=== PATIENT | female | born 1965 | race Asian ===

== ENCOUNTER 2016-11-23 01:51 | Emergency (ER) | payer BC ==
[2016-11-23] VITALS (11 sets, daily range): BP systolic 92–116; BP diastolic 62–69
[~2016-11-23] VITALS: Ht 167.6 cm; Wt 65.8 kg
[2016-11-23] MEDS ORDERED: Haloperidol 5mg/ml Inj IM ONE (02:15)
--- NOTE | 2016-11-23 02:21 | Emergency Room Report ---
History of Present Illness General Chief Complaint: Behavioral Complaint Source: Patient, Family Member, EMS Present Illness HPI This is a 51-year-old Turkmen with a history of alcohol abuse and depression. She was brought in by EMS with police escort on a 5150. Her called 911 because she was suicidal. He said that she was binge drinking and took Valium in attempt to overdose. She was hit her head against the wall. Per police, she expressed suicidal thoughts and try to bite her tongue. Her has been said that she's been depressed lately because her parents recently . She been drinking more. She had a history of expressing suicidal thoughts medicationbyherpsychiatrist. She was doing well on it but stopped. Allergies: Coded Allergies: No Known Allergies (Unverified , 11/23/16) Patient History Past Medical History: see triage record, old chart reviewed Past Surgical History: other Family History: none Social History: ETOH Last Menstrual Period: ukn Now: No - ukn Immunizations: other Reviewed Nursing Documentation: PMH: Agreed, PSxH: Agreed Nursing Documentation-PMH Past Medical History: No History, Except For Review of Systems ENT: Denies: sore throat Cardiovascular: Denies: chest pain, palpitations Gastrointestinal/Abdominal: Denies: diarrhea, nausea, vomiting Musculoskeletal: Denies: back problems Skin: Denies: rash Neurological: Denies: HOWE, seizures All Other Systems: negative except mentioned in HPI Physical Exam Vital Signs Date Time Temp Pulse Resp B/P Pulse Ox O2 Delivery O2 Flow Rate FiO2 11/23/16 01:43 98.2 92 16 104/68 98 Room Air vitals normal Sp02 EP Interpretation: reviewed, normal General Appearance: alert/responsive, no apparent distress, non-toxic Head: normocephalic, atraumatic Eyes: PERRL, EOMI ENT: oropharynx normal Neck: supple/symm/no masses Respiratory: effort normal, no rhonchi, no wheezing Cardiovascular: no murmur, gallop, rub Gastrointestinal: non-tender, no mass, non-distended, no rebound/guarding, normal bowel sounds Neurologic: oriented x3, sensory intact, motor strength/tone normal Psychiatric: other - Combative, not cooperative. Yelling. Suicide Risk Assessment: Suicidal Ideation: Yes Had intent to initiate attempt: Yes Pt's plan for suicide attempt: Yes Has means to complete attempt: Yes Skin: no rash, normal palpation Medical Decision Making Diagnostic Impression: Primary Impression: Suicidal ideation Additional Impression: Overdose Qualified Codes: T50.902A - Poisoning by unspecified drugs, medicaments and biological substances, intentional self-harm, initial encounter ER Course Patient presents with overdose and suicidal thoughts. Patient was very combative and aggressive. She had to be placed in physical restraint. Once she is calmer, will remove restraint. Patient is given Haldol for sedation. patient is medically clear for psychiatric evaluation. Laboratory Tests Test 11/23/16 02:45 White Blood Count 12.6 K/UL (4.8-10.8) H Red Blood Count 4.33 M/UL (4.20-5.40) Hemoglobin 14.0 G/DL (12.0-16.0) Hematocrit 40.5 % (37.0-47.0) Mean Corpuscular Volume 94 FL (80-99) Mean Corpuscular Hemoglobin 32.4 PG (27.0-31.0) H Mean Corpuscular Hemoglobin Concent 34.6 G/DL (32.0-36.0) Red Cell Distribution Width 10.6 % (11.6-14.8) L Platelet Count 296 K/UL (150-450) Mean Platelet Volume 5.8 FL (6.5-10.1) L Neutrophils (%) (Auto) 77.0 % (45.0-75.0) H Lymphocytes (%) (Auto) 14.3 % (20.0-45.0) L Monocytes (%) (Auto) 7.6 % (1.0-10.0) Eosinophils (%) (Auto) 0.5 % (0.0-3.0) Basophils (%) (Auto) 0.5 % (0.0-2.0) Urine Color Pale yellow Urine Appearance Clear Urine pH 7 (4.5-8.0) Urine Specific Schneider 1.015 (1.005-1.035) Urine Protein Negative (NEGATIVE) Urine Glucose (UA) Negative (NEGATIVE) Urine Ketones Negative (NEGATIVE) Urine Occult Blood 1+ (NEGATIVE) H Urine Nitrite Negative (NEGATIVE) Urine Bilirubin Negative (NEGATIVE) Urine Urobilinogen Normal MG/DL (0.0-1.0) Urine Leukocyte Esterase Negative (NEGATIVE) Urine RBC 5-10 /HPF (0 - 2) H Urine WBC 0-2 /HPF (0 - 2) Urine Squamous Epithelial Cells Occasional /LPF Urine Bacteria Occasional /HPF (NONE) Urine Mucus Few /LPF (NONE/OCC) H Urine HCG, Qualitative Negative Sodium Level 143 mEQ/L (135-145) Potassium Level 3.7 mEQ/L (3.4-4.9) Chloride Level 103 mEQ/L (98-107) Carbon Dioxide Level 19 mEQ/L (20-30) L Anion Gap 21 (5-15) H Blood Urea Nitrogen 22 mg/dL (7-23) Creatinine 1.0 mg/dL (0.5-0.9) H Estimat Glomerular Filtration Rate 58.0 mL/min (>60) Glucose Level 114 mg/dL (74-106) H Calcium Level 9.1 mg/dL (8.6-10.2) Total Bilirubin 0.4 mg/dL (0.0-1.2) Aspartate Amino Transf (AST/SGOT) 27 U/L (5-40) Alanine Aminotransferase (ALT/SGPT) 18 U/L (3-33) Alkaline Phosphatase 59 U/L (35-104) Total Protein 7.1 g/dL (6.6-8.7) Albumin 4.0 g/dL (3.5-5.2) Globulin 3.1 g/dL Albumin/Globulin Ratio 1.2 (1.0-2.7) Salicylates Level < 1 mg/dL (10-30) L Urine Opiates Screen Negative (NEGATIVE) Acetaminophen Level < 10 ug/mL (10-30) L Urine Barbiturates Screen Negative (NEGATIVE) Phencyclidine (PCP) Screen Negative (NEGATIVE) Urine Amphetamines Screen Negative (NEGATIVE) Urine Benzodiazepines Screen Positive (NEGATIVE) H Urine Cocaine Screen Negative (NEGATIVE) Urine Marijuana (THC) Screen Negative (NEGATIVE) Serum Alcohol < 10 mg/dL Lab Results Impression labs unremarkable Rhythm Strip Diag. Results Rhythm Strip Time: 02:20 EP Interpretation: yes Rate: 88 Rhythm: NSR, no PVC's, no ectopy Last Vital Signs Date Time Temp Pulse Resp B/P Pulse Ox O2 Delivery O2 Flow Rate FiO2 11/23/16 01:43 98.2 92 16 104/68 98 Room Air Status: improved Disposition: XFER TO PSYCH HOSP/UNIT Condition: Stable ANTELMO MARKS M.D. Nov 23, 2016 02:21
[2016-11-23 03:02] LABS: BASOPHILS % (AUTO) 0.5 % (0.0-2.0); EOSINOPHILS % (AUTO) 0.5 % (0.0-3.0); LYMPHOCYTES % (AUTO) 14.3 % (20.0-45.0); MEAN CORPUSCULAR HEMOGLOBIN 32.4 PG (27.0-31.0); MEAN CORPUSCULAR HGB CONC 34.6 G/DL (32.0-36.0); MEAN CORPUSCULAR VOLUME 94 FL (80-99); MEAN PLATELET VOLUME 5.8 FL (6.5-10.1); MONOCYTES % (AUTO) 7.6 % (1.0-10.0); PLATELET COUNT 296 K/UL (150-450); RED BLOOD COUNT 4.33 M/UL (4.20-5.40); RED CELL DISTRIBUTION WIDTH 10.6 % (11.6-14.8); WHITE BLOOD COUNT 12.6 K/UL (4.8-10.8)
[2016-11-23 03:06] LABS: APPEARANCE,URINE CLEAR; KETONES,URINE NEGATIVE (NEGATIVE); LEUKOCYTE ESTERASE ,URINE NEGATIVE (NEGATIVE); NITRITE,URINE NEGATIVE (NEGATIVE); PH,URINE 7 (4.5-8.0); PROTEIN,URINE NEGATIVE (NEGATIVE); UROBILINOGEN,URINE NORMAL MG/DL (0.0-1.0)
[2016-11-23 03:16] LABS: ACETAMINOPHEN < 10 ug/mL (10-30); ALANINE AMINOTRANSFERASE 18 U/L (3-33); ALBUMIN/GLOBULIN RATIO 1.2 (1.0-2.7); ALCOHOL < 10 mg/dL; ANION GAP 21 (5-15); ASPARTATE AMINO TRANSFERASE 27 U/L (5-40); CALCIUM 9.1 mg/dL (8.6-10.2); CARBON DIOXIDE 19 mEQ/L (20-30); CHLORIDE 103 mEQ/L (98-107); HEMOLYSIS 5; POTASSIUM 3.7 mEQ/L (3.4-4.9); SODIUM 143 mEQ/L (135-145); TOTAL PROTEIN 7.1 g/dL (6.6-8.7)
[2016-11-23 03:30] LABS: WBC,URINE 0-2 /HPF (0 - 2)
[2016-11-23 03:31] LABS: BACTERIA,URINE OCCASIONAL /HPF; MUCUS,URINE FEW /LPF (NONE/OCC); SQUAMOUS EPITHELIAL CELL,UR OCCASIONAL /LPF (NONE/OCC)
--- NOTE | 2016-11-23 14:22 | Consultation ---
History of Present Illness General Chief Complaint: Behavioral Complaint Present Illness HPI 51-year-old Tajik with a history of alcohol abuse and depression. She was brought in by EMS with police escort on a 5150. Her who is a physician called 911 because "she was suicidal." Apparently, she was binge drinking and took Valium in attempt to overdose. The pt was hitting her head against the wall. Pt was uncooperative and angry and argumentative. The pt stated that she was trying to calm down and that's why she took the valium she took from her . the pt remained irritable and appears to be depressed. the pt was entitled and when i tried to gather collateral information from the sister, the sister was reluctant to speak to us. I also called the and left vm. the pt stated that "they talk about me in the hallway. they are not suppose to..they should talk in private room." they pt's family was told that the staff never use any pts room. they were told all staff which includes doctors are professionals and familiar with HIPPA, Allergies: Coded Allergies: No Known Allergies (Unverified , 11/23/16) Patient History History Provided By: Patient, Significant Other, PMD Healthcare decision maker Resuscitation status Advanced Directive on File Past Medical/Surgical History Past Medical/Surgical History: (1) Alcohol intoxication (2) Overdose (3) Suicidal ideation Review of Systems Psychiatric: Reports: SI, anxiety, depressed feelings, emotional problems, prior hx Physical Exam General Appearance: alert, agitated, thin Neurologic: alert, oriented x 3, depressed affect Last 24 Hour Vital Signs Date Time Temp Pulse Resp B/P Pulse Ox O2 Delivery O2 Flow Rate FiO2 11/23/16 12:47 75 22 92/63 99 Room Air 11/23/16 10:31 97.4 64 19 96/66 99 Room Air 11/23/16 07:19 97.0 64 16 96/68 99 Room Air 11/23/16 06:54 97.6 100 18 112/67 99 Room Air 11/23/16 05:00 99 18 116/69 99 Room Air 11/23/16 03:05 99 16 98 Room Air 11/23/16 03:00 96 16 102/64 96 11/23/16 03:00 96 16 98 Room Air 11/23/16 02:45 99 16 98 Room Air 11/23/16 02:30 102 16 98 Room Air 11/23/16 02:15 100 16 98 Room Air 11/23/16 02:00 102 16 98 Room Air 11/23/16 02:00 98.2 102 16 104/68 98 Room Air 11/23/16 01:43 98.2 92 16 104/68 98 Room Air Laboratory Tests Test 11/23/16 02:45 White Blood Count 12.6 K/UL (4.8-10.8) H Red Blood Count 4.33 M/UL (4.20-5.40) Hemoglobin 14.0 G/DL (12.0-16.0) Hematocrit 40.5 % (37.0-47.0) Mean Corpuscular Volume 94 FL (80-99) Mean Corpuscular Hemoglobin 32.4 PG (27.0-31.0) H Mean Corpuscular Hemoglobin Concent 34.6 G/DL (32.0-36.0) Red Cell Distribution Width 10.6 % (11.6-14.8) L Platelet Count 296 K/UL (150-450) Mean Platelet Volume 5.8 FL (6.5-10.1) L Neutrophils (%) (Auto) 77.0 % (45.0-75.0) H Lymphocytes (%) (Auto) 14.3 % (20.0-45.0) L Monocytes (%) (Auto) 7.6 % (1.0-10.0) Eosinophils (%) (Auto) 0.5 % (0.0-3.0) Basophils (%) (Auto) 0.5 % (0.0-2.0) Urine Color Pale yellow Urine Appearance Clear Urine pH 7 (4.5-8.0) Urine Specific [place] 1.015 (1.005-1.035) Urine Protein Negative (NEGATIVE) Urine Glucose (UA) Negative (NEGATIVE) Urine Ketones Negative (NEGATIVE) Urine Occult Blood 1+ (NEGATIVE) H Urine Nitrite Negative (NEGATIVE) Urine Bilirubin Negative (NEGATIVE) Urine Urobilinogen Normal MG/DL (0.0-1.0) Urine Leukocyte Esterase Negative (NEGATIVE) Urine RBC 5-10 /HPF (0 - 2) H Urine WBC 0-2 /HPF (0 - 2) Urine Squamous Epithelial Cells Occasional /LPF Urine Bacteria Occasional /HPF (NONE) Urine Mucus Few /LPF (NONE/OCC) H Urine HCG, Qualitative Negative Sodium Level 143 mEQ/L (135-145) Potassium Level 3.7 mEQ/L (3.4-4.9) Chloride Level 103 mEQ/L (98-107) Carbon Dioxide Level 19 mEQ/L (20-30) L Anion Gap 21 (5-15) H Blood Urea Nitrogen 22 mg/dL (7-23) Creatinine 1.0 mg/dL (0.5-0.9) H Estimat Glomerular Filtration Rate 58.0 mL/min (>60) Glucose Level 114 mg/dL (74-106) H Calcium Level 9.1 mg/dL (8.6-10.2) Total Bilirubin 0.4 mg/dL (0.0-1.2) Aspartate Amino Transf (AST/SGOT) 27 U/L (5-40) Alanine Aminotransferase (ALT/SGPT) 18 U/L (3-33) Alkaline Phosphatase 59 U/L (35-104) Total Protein 7.1 g/dL (6.6-8.7) Albumin 4.0 g/dL (3.5-5.2) Globulin 3.1 g/dL Albumin/Globulin Ratio 1.2 (1.0-2.7) Salicylates Level < 1 mg/dL (10-30) L Urine Opiates Screen Negative (NEGATIVE) Acetaminophen Level < 10 ug/mL (10-30) L Urine Barbiturates Screen Negative (NEGATIVE) Phencyclidine (PCP) Screen Negative (NEGATIVE) Urine Amphetamines Screen Negative (NEGATIVE) Urine Benzodiazepines Screen Positive (NEGATIVE) H Urine Cocaine Screen Negative (NEGATIVE) Urine Marijuana (THC) Screen Negative (NEGATIVE) Serum Alcohol < 10 mg/dL Height (Feet): 5 Height (Inches): 6.00 Weight (Pounds): 145 Assessment/Plan Status: not improved Assessment/Plan the pt was agitated and was uncooperative with the evaluation. the pt has poor impulse control. the pt prevented family to provide collateral info. the pt is still dts the pt will be transfer to psych floor the pt will remain on 5150 Wandy Weiss M.D. Nov 23, 2016 14:22
[2016-11-24 01:01] VITALS: BP 95/60
[2016-11-24 03:05] VITALS: BP 101/65
[2016-11-24 04:25] VITALS: BP 98/60
[2016-11-24 05:45] VITALS: BP 96/59
[2016-11-24 07:21] VITALS: BP 103/68
--- NOTE | 2016-11-24 09:34 | General Progress Note ---
Subjective Neurologic/Psychiatric: Reports: anxiety, depressed, emotional problems Allergies: Coded Allergies: No Known Allergies (Unverified , 11/23/16) Subjective the pt is calmer and more cooperative. the pt denied having drinking issues. the pt stated recently she "has been through a lot stress." The pt stated that her is giving her Valium. The pt stated that she has a poppy that is giving her much stress. the pt lost her parents within the past three months. the pt didn't recall the conversation we had the day before. The pt recalls that she was upset and didn't cooperate. the pt denies suicidal ideation. Objective Last 24 Hour Vital Signs Date Time Temp Pulse Resp B/P Pulse Ox O2 Delivery O2 Flow Rate FiO2 11/24/16 07:21 98.2 65 14 103/68 96 Room Air 11/24/16 05:45 97.6 58 14 96/59 99 Room Air 11/24/16 04:25 59 12 98/60 97 Room Air 11/24/16 03:05 97.9 60 17 101/65 98 Room Air 11/24/16 01:01 97.8 57 18 95/60 11/23/16 12:47 75 22 92/63 99 Room Air 11/23/16 10:31 97.4 64 19 96/66 99 Room Air Intake and Output 11/23/16 11/24/16 19:00 07:00 Intake Total 0 ml Balance 0 ml Intake Oral 0 ml Height (Feet): 5 Height (Inches): 6.00 Weight (Pounds): 145 General Appearance: alert, mild distress, thin Neurologic: alert, oriented x 3, responsive, depressed affect Wandy Weiss M.D. Nov 24, 2016 09:34
[2016-11-24] MEDS ORDERED: MIRTAZAPINE15 MG ORAL (11:29)
[2016-11-24 11:55] VITALS: BP 105/78
== END 2016-11-24 11:55 | disposition home or self-care (01) ==
LOC: EDBD 01:51 → EMR 02:45
DX: T50.992A Poisoning by other drugs, medicaments and biological substances, intentional self-harm, initial encounter (principal); F32.9 Major depressive disorder, single episode, unspecified; F41.9 Anxiety disorder, unspecified; Y92.9 Unspecified place or not applicable
CPT/HCPCS: 36415; 80053; 80300; 81003; 81025; 85025; 96372; 99285; G0480; J1630; 80329